=== PATIENT | female | born 1990 | race Two or more races ===

== ENCOUNTER 2018-07-14 16:52 | Emergency (ER) | payer OTHER ==
[~2018-07-14] VITALS: Ht 157.5 cm; Wt 81.6 kg
[2018-07-14] MEDS ORDERED: NKM (17:13)
[2018-07-14 17:20] VITALS: BP 123/86
--- NOTE | 2018-07-14 17:30 | NUR ---
ED Nurse Note: pt walked in c/o low back and neck pain since sat, denies any recent injuries, aA&ox4, gcs=15, skin warm and dry, resp even and unlabored on RA, no obvious deformity nor open wound nor contusion noted, vss, will cont monitor.
[2018-07-14] MEDS ORDERED: ROBAXIN-750750 MG PO (17:37)
[2018-07-14] MEDS ORDERED: NAPROXEN500 M1 ORAL (17:37)
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
--- NOTE | 2018-07-14 17:45 | NUR ---
ED Nurse Note: pt cleared to be d/c per ER provider, pt discharge and aftercare instruction provided, pt education done via discussion and handout, pt advised to follow up with pcp or return to ed if changes in condition, pt verbalized understanding and agrees with plan, vss, ambulatory w/steady gait, left w/ all belongings.
[2018-07-14 17:47] VITALS: BP 121/67
== END 2018-07-14 20:05 | disposition home or self-care (01) ==
LOC: EMR 19:50
DX: S16.1XXA Strain of muscle, fascia and tendon at neck level, initial encounter (principal); V43.62XA Car passenger injured in collision with other type car in traffic accident, initial encounter; Y92.410 Unspecified street and highway as the place of occurrence of the external cause; M54.9 Dorsalgia, unspecified
CPT/HCPCS: 99282